=== PATIENT | female | born 1985 | race Caucasian/White ===

== ENCOUNTER 2016-05-12 19:44 | Emergency (ER) | payer OTHER ==
--- NOTE | 2016-05-12 20:25 | DX ---
Right Foot , Three History:Pain post trauma. Dropped plastic on her foot earlier today. Hematoma over distal third and f ourth metatarsals. Findings: No fracture or dislocation is identified. Mineralization is normal. There is soft tissue sw elling over the dorsal aspect of the foot. Impression: No fracture or dislocation identified. Dorsal hematoma.
--- NOTE | 2016-05-12 20:31 | EDPHY ---
H & P Stated Complaint: dropped bottle on R foot Time Seen by Provider: 05/12/16 20:00 HPI/ROS: Chief complaint: Right foot injury History of present illness: 30-year-old female presents to the emergency department for a right foot injury. Patient dropped a water bottle on it just prior to arrival. She has developed pain and swelling in the foot. It hurts to ambulate. No report of open wounds. No paresthesias or abnormal coolness in the foot. No other injuries reported. - Personal History LMP (Females 10-55): 8-14 Days Ago Current Tetanus/Diphtheria Vaccine: Yes Current Tetanus Diphtheria and Acellular Pertussis (TDAP): Yes - Medical/Surgical History Hx Asthma: Yes Hx Chronic Respiratory Disease: No Hx Diabetes: No Hx Cardiac Disease: No Hx Renal Disease: No Hx Cirrhosis: No Hx Alcoholism: No Hx HIV/AIDS: No Hx Splenectomy or Spleen Trauma: No Other PMH: asthma - Social History Smoking Status: Never smoked - Physical Exam Exam: General: Alert, nontoxic Skin: Contusion to the distal dorsum of the right foot. Musculoskeletal: Patient can move all digits in the right foot. She can move the ankle in all diallo. Vascular: DP and PT pulses 2+. Capillary refill brisk in the right foot. Neurologic: Sensation intact throughout the right foot Constitutional: Initial Vital Signs Temperature (C) 36.8 C 05/12/16 19:50 Heart Rate 81 05/12/16 19:50 Respiratory Rate 16 05/12/16 19:50 Blood Pressure 135/90 H 05/12/16 19:50 O2 Sat (%) 96 05/12/16 19:50 O2 Delivery Mode Room Air Allergies/Adverse Reactions: cefaclor [From Ceclor] Allergy (Verified 05/12/16 19:50) Penicillins Allergy (Verified 05/12/16 19:50) Home Medications: Medication Instructions Recorded NK [No Known Home Meds] 05/12/16 Medical Decision Making - Diagnostics Imaging: X-ray series of the right foot is negative for fracture ED Course/Re-evaluation: Patient seen under the supervision of my secondary supervising physician Dr. Stanton Angeles. Patient presents to the emergency department for a right foot injury. The foot is neurovascularly intact. X-rays are negative for fracture. This appears to be a contusion. Patient is discharged home. Home care is discussed. She is referred to Orthopedics for recheck. Return precautions are given. Patient voiced understanding and agreement with plan. Departure - Departure Disposition: Home, Routine, Self-Care Clinical Impression: Foot contusion Condition: Good Instructions: Foot Contusion (ED) Additional Instructions: Follow-up with orthopedics for recheck next week Ice the injury, 20 minutes on, 3 times daily for the next 3 days Use ibuprofen 600 mg 3 times a day for the next 2-3 days If symptoms worsen or new symptoms develop return to the emergency department for recheck Referrals: NONE *PRIMARY CARE P,. [Primary Care Provider] - As per Instructions Katherine Oates MD [Medical Doctor] - As per Instructions
[2016-05-12 20:42] VITALS: BP 130/78; PULSE 80; RESP 14; TEMP 97.9; O2SAT 94
== END 2016-05-12 20:41 | disposition home or self-care (01) ==
DX: S90.31XA Contusion of right foot, initial encounter (principal); J45.909 Unspecified asthma, uncomplicated; W20.8XXA Other cause of strike by thrown, projected or falling object, initial encounter